=== PATIENT | female | born 1940 | race Caucasian/White ===

== ENCOUNTER 2016-12-14 13:23 | Inpatient (IN) | payer MEDICARE ==
[2016-12-14] MEDS ORDERED: traZODone TAB* 50 MG TAB PO PRN (15:27)
[2016-12-14] MEDS ORDERED: oxyCODONE TAB* 5 MG TAB PO PRN (15:28)
[2016-12-14] MEDS ORDERED: LORazepam TAB(*) 0.5 MG SL PRN (15:53)
[2016-12-14] MEDS ORDERED: LORazepam INJ* 2 MG/ML 1 ML VIAL IV PUSH PRN (15:53)
[2016-12-14] MEDS ORDERED: Dexamethasone IV* 4 MG/ML 1 ML (4 MG) ONE (16:52)
--- NOTE | 2016-12-14 17:00 | ED ---
Edel Arguello Auryana, scribed for Margarito Quigley MD on 12/14/16 at 1458 . Neurological HPI - HPI Summary HPI Summary: 76 year old female presents with LUE weakness/numbness starting this morning. Patient was unable to hold objects in her hands without dropping them. She also reports reports a slight FAGAN "like when you don't eat". She has been on chemotherapy and is scheduled to continue treatment for the next month. She has a PMHx of HLD, and ovarian, breast, and lung cancer. She was seen at [facility] today and referred to ED for further evaluation of MRI results - metastasized lesions to the brain. Dr. Lyon accepted this transfer [facility]. - History of Current Complaint Chief Complaint: EDNeurologicalDeficit Stated Complaint: ARM NUMBNESS Time Seen by Provider: 12/14/16 13:31 Last Known Well Date: 12/14/16 Hx Obtained From: Patient Hx Last Menstrual Period: N/A Onset/Duration: Sudden Onset - this morning, Still Present Onset Severity: Mild Current Severity: Mild Neurological Deficit Location: LUE Pain Intensity: 3 Pain Scale Used: 0-10 Numeric Character: Weak Associated Signs and Symptoms: Positive: Headache - reports "like when you dont eat", Weakness - LUE - Allergy/Home Medications Allergies/Adverse Reactions: Allergies Allergy/AdvReac Type Severity Reaction Status Date / Time seasonal allergies Allergy Nasal Uncoded 01/28/16 09:15 drip, cough Home Medications: Home Medications Aspirin TAB* [Aspirin 325 MG TAB*] 325 mg PO DAILY 12/14/16 [History Confirmed 12/14/16] Cholecalciferol TAB* [Vitamin D TAB*] 1,000 unit PO DAILY 12/14/16 [History Confirmed 12/14/16] Gemfibrozil TAB* [Lopid TAB*] 600 mg PO BID 12/14/16 [History Confirmed ] Lansoprazole SOLUTAB* [Prevacid SOLUTAB*] 15 mg PO EVERY OTHER DAY 12/14/16 [ History Confirmed 12/14/16] Multivitamins/Minerals TAB* [Theragran/minerals TAB*] 1 tab PO DAILY 12/14/16 [ History Confirmed 12/14/16] Olaparib 400 mg PO BID 12/14/16 [History Confirmed 12/14/16] Argyle-3 Fatty Acids (Nf) [Fish Oil (NF)] 1,000 mg PO DAILY 12/14/16 [History Confirmed 12/14/16] PMH/Surg Hx/FS Hx/Imm Hx Endocrine/Hematology History: Denies: Hx Diabetes, Hx Systemic Lupus Erythematosus Cardiovascular History: Denies: Hx Congestive Heart Failure, Hx Hypertension, Other Cardiovascular Problems/Disorders Respiratory History: Reports: Other Respiratory Problems/Disorders - LUNG CANCER Denies: Hx Asthma History: Denies: Hx Dialysis, Hx Renal Disease Musculoskeletal History: Denies: Hx Rheumatoid Arthritis Neurological History: Reports: Other Neuro Impairments/Disorders - numbness in feet and hands - Cancer History Cancer Type, Location and Year: breast 2006 and ovarian 2008 and lung cancer 2012 Hx Chemotherapy: Yes - Surgical History Surgery Procedure, Year, and Place: hysterectomy 2008; lumpectomy 2006; hernia 2009 Infectious Disease History: No Infectious Disease History: Denies: Traveled Outside the [place] in Last 30 Days - Social History Occupation: Retired Lives: Alone Alcohol Use: None Substance Use Type: Reports: None Hx Tobacco Use: No Smoking Status (MU): Never Smoked Tobacco Review of Systems Constitutional: Negative Eyes: Negative ENT: Negative Cardiovascular: Negative Respiratory: Negative Gastrointestinal: Negative Genitourinary: Negative Musculoskeletal: Negative Skin: Negative Positive: Headache - slight - see HPI, Weakness Psychological: Normal All Other Systems Reviewed And Are Negative: Yes Physical Exam - Summary Physical Exam Summary: VITAL SIGNS: Reviewed. GENERAL: Patient is a elderly fragile appearing female who is lying comfortable in the stretcher. Patient is not in any acute respiratory distress. HEAD AND FACE: No signs of trauma. No ecchymosis, hematomas or skull depressions. No sinus tenderness. EYES: PERRLA, EOMI x 2, No injected conjunctiva, no nystagmus. No photophobia. EARS: Hearing grossly intact. Ear canals and tympanic membranes are within normal limits. MOUTH: Oropharynx within normal limits. NECK: Supple, trachea is midline, no adenopathy, no JVD, no carotid bruit, no c- spine tenderness, neck with full ROM. No meningeal signs, no Kernig's or brudzinskis signs. CHEST: Symmetric, no tenderness at palpation LUNGS: Clear to auscultation bilaterally. No wheezing or crackles. CVS: Regular rate and rhythm, S1 and S2 present, no murmurs or gallops appreciated. ABDOMEN: Soft, non-tender. No signs of distention. No rebound no guarding, and no masses palpated. Bowel sounds are normal. EXTREMITIES: FROM in all major joints, no edema, no cyanosis or clubbing. NEURO: Alert and oriented x 3. SLIGHT weakness in the LUE. Speech is normal and follows commands. SKIN: Dry and warm Triage Information Reviewed: Yes Vital Signs On Initial Exam: Initial Vitals Temp Pulse Resp BP Pulse Ox 98.7 F 84 18 135/64 96 12/14/16 13:30 12/14/16 13:30 12/14/16 13:30 12/14/16 13:30 12/14/16 13:30 Vital Signs Reviewed: Yes Diagnostics - Vital Signs Vital Signs Temp Pulse Resp BP Pulse Ox 12/14/16 13:30 98.7 F 84 18 135/64 96 - Laboratory Lab Statement: Any lab studies that have been ordered have been reviewed, and results considered in the medical decision making process. Course/Dx - Course Assessment/Plan: 76 year old female presents with LUE weakness/numbness starting this morning. Patient was unable to hold objects in her hands without dropping them. She also reports reports a slight FAGAN "like when you don't eat". She has been on chemotherapy and is scheduled to continue treatment for the next month. She has a PMHx of HLD, and ovarian, breast, and lung cancer. She was seen at [facility] today and referred to ED for further evaluation of MRI results - metastasized lesions to the brain. Dr. Lyon accepted this transfer [facility]. At arrival the patient is hemodynamically stable she AOX3 and she has no other complaints. Annette HOCKEY SCOUT from Dr. Lyon came to the ED and assess patient. She discussed the case with Dr. Lyon and admitted the patient to their services. Did not require require a repeat blood work or any imaging. - Diagnoses Provider Diagnoses: Brain metastases - Physician Notifications Discussed Care of Patient With: DR. LYON - [facility] ACCEPTED PATIENT FOR ADMISSION Instructed by Provider To: Admit As Inpatient Discharge - Discharge Plan Condition: Stable Disposition: ADMITTED TO [facility] The documentation as recorded by the Edel quiroga Auryana accurately reflects the service I personally performed and the decisions made by , Margarito Quigley MD.
[2016-12-14] MEDS: Dexamethasone IV* 4 MG in NS 0.9% 50 ML* 50 ML IVPB SCH ×2 (17:14→21:56)
[2016-12-14] MEDS: levETIRAcetam TAB* 500 MG PO SCH (20:36)
[2016-12-14] MEDS: Gemfibrozil TAB* 600 MG PO SCH (20:36)
[2016-12-15] MEDS: Dexamethasone IV* 4 MG in NS 0.9% 50 ML* 50 ML IVPB SCH ×4 (04:01→22:44)
[2016-12-15 05:05] LABS: Hematocrit 34 % (35-47); Hemoglobin 11.7 g/dl (12.0-16.0); Mean Corpuscular HGB Conc 34 g/dl (31-36); Mean Corpuscular Hemoglobin 39 pg (27-31); Mean Corpuscular Volume 113 fL (80-97); Mean Platelet Volume 9 um3 (7.4-10.4); Red Blood Count 3.03 10^6/ul (4.0-5.4); Red Cell Distribution Width 18 % (10.5-15); White Blood Count 5.5 10^3/ul (3.5-10.8)
[2016-12-15 05:09] LABS: Albumin 3.6 g/dL (3.2-5.2); BUN/Creatinine Ratio 33.3 (8-20); Calcium 9.6 mg/dL (8.6-10.3); EGFR African American 125.7 (>60); EGFR Non-African American 97.7 (>60); Globulin 2.6 g/dL (2-4); Potassium 4.2 mmol/L (3.5-5.0); Total Bilirubin 0.5 mg/dL (0.2-1.0); Total Protein 6.2 g/dL (6.4-8.9)
[2016-12-15] MEDS: NS 0.9% 1000 ML* 1,000 ML IV SCH (06:38)
[2016-12-15] MEDS: Multivitamins/Minerals TAB PO SCH (08:56)
[2016-12-15] MEDS: levETIRAcetam TAB* 500 MG PO SCH ×2 (08:56→20:18)
[2016-12-15] MEDS: Cholecalciferol TAB* 1000 UNITS PO SCH (08:56)
[2016-12-15] MEDS: Gemfibrozil TAB* 600 MG PO SCH ×2 (08:57→20:18)
[2016-12-15] MEDS: LORazepam TAB(*) 0.5 MG SL PRN (10:20)
--- NOTE | 2016-12-15 12:28 | RAD ---
INDICATION: CT for radiation therapy mapping. Intracranial metastasis. COMPARISON: MRI brain December 14, 2016 TECHNIQUE: Noncontrast, nondiagnostic, axial source images of the head were acquired. FINDINGS: There are intracranial lesions with associated vasogenic edema better documented on recent MR imaging. There is no acute intracranial hemorrhage. There is left maxillary antral sinusitis with an air-fluid level. Please refer also to recent external examinations. IMPRESSION: A SIM study was performed for radiation planning purposes.
--- NOTE | 2016-12-15 17:05 | RADMED ---
RADIATION ONCOLOGY INPATIENT CONSULTATION NOTE: DATE OF SERVICE: 12/14/16 DIAGNOSES: Breast and ovarian cancer with newly discovered brain metastasis. HISTORY OF PRESENT ILLNESS: Kellie Chaparro is a 76-year-old woman with known BRCA mutation and history of breast cancer treated in 2006, as well as ovarian cancer, with recently discovered additional malignancy in the right breast and axilla. She had initiated Doxil chemotherapy, and presented with an episode of shaking of the left arm for evaluation with CT scan of the head showing intracranial lesions and MRI performed earlier today, 12/14/16, showing approximately 15 enhancing lesions consistent with brain metastases. She has received dexamethasone and Keppra with symptomatic improvement, and is referred for consideration of palliative whole brain radiation therapy. PAST MEDICAL HISTORY: Breast and ovarian cancer, as in history of present illness. MEDICATIONS: 1. Vitamin D. 2. Dexamethasone. 3. Gemfibrozil. 4. Lansoprazole. 5. Keppra. 6. Ativan. 7. Multivitamin. 8. Oxycodone. 9. Trazodone. ALLERGIES: No known drug allergies. FAMILY HISTORY: Significant for known BRCA mutation in the family. SOCIAL HISTORY: She is accompanied by several of her children and one of her grandchildren. REVIEW OF SYSTEMS: Complete review of systems is asked of the patient. Negative for additional significant findings. PHYSICAL EXAM: Vital Signs: Temperature 99, pulse rate 83, respiratory rate 16 , oxygen saturation 95% on room air, blood pressure 116/62. In general, she is awake, alert and oriented, in no acute distress. Normocephalic, atraumatic, sclerae anicteric. Neck is supple. Full range of motion. Midline trachea. No masses felt in the neck or thyroid. Lungs are clear to auscultation bilaterally. Cardiovascular: S1, S2. Regular. Abdomen: Soft, nontender. No masses, no organomegaly. Extremities: No cyanosis or edema. Neurologic: Cranial nerves II through XII are intact. Strength is symmetric in the proximal and distal muscle groups in the upper and lower extremities. There is pronator drift of the left arm, minimal dysmetria. DIAGNOSTIC STUDIES/LAB DATA: Pathology and Radiology: Reviewed as in the history of present illness. ASSESSMENT AND PLAN: Kellie Chaparro is a 76-year-old woman with breast and ovarian cancer both systemic disease and now newly discovered multiple brain metastases. I did review her history as well as pathologic and radiographic findings, and discussed at some length with the patient and her family, as they are already well informed and familiar. We reviewed the natural history of brain metastases, and considerations for management, with the majority of our discussion focused on her situation. I reviewed options including palliative care and hospice, focal radiation therapy, and primarily whole brain radiation therapy. I described the logistics and rationale for that treatment, risks, benefits, alternatives, as well as the acute and long-term frequent and uncommon toxicities. I did answer the patient and her family's questions to the best of my ability. She is interested to proceed with palliative whole brain radiation therapy as discussed and did sign informed consent. She will undergo CT simulation tomorrow to facilitate treatment planning. It is my intention to deliver 3000 cGy in 10 fractions, tentative first treatment plan tomorrow . The treatment can continue on an inpatient or outpatient basis as her medical situation permits. Thank you for giving me the opportunity to participate in the care of this very pleasant patient. CC: Dr. Lyon* [id number]/[facility] #: [id number] FRANK
[2016-12-16] MEDS: Dexamethasone IV* 4 MG in NS 0.9% 50 ML* 50 ML IVPB SCH ×4 (04:03→22:11)
[2016-12-16 04:31] LABS: Albumin 3.5 g/dL (3.2-5.2); BUN/Creatinine Ratio 41.9 (8-20); Calcium 9.4 mg/dL (8.6-10.3); EGFR Non-African American 94.1 (>60); Globulin 2.6 g/dL (2-4); Potassium 4.2 mmol/L (3.5-5.0); Total Bilirubin 0.4 mg/dL (0.2-1.0); Total Protein 6.1 g/dL (6.4-8.9)
[2016-12-16] MEDS ORDERED: Lansoprazole susp Kit 3 MG/ML (15 MG = 5 ML) PO SCH (09:00)
[2016-12-16] MEDS: Cholecalciferol TAB* 1000 UNITS PO SCH (10:13)
[2016-12-16] MEDS: levETIRAcetam TAB* 500 MG PO SCH ×2 (10:13→21:12)
[2016-12-16] MEDS: Gemfibrozil TAB* 600 MG PO SCH ×2 (10:13→21:12)
[2016-12-16] MEDS: Multivitamins/Minerals TAB PO SCH (10:13)
[2016-12-16] MEDS: LORazepam TAB(*) 0.5 MG SL PRN (10:14)
[2016-12-16] MEDS: NS 0.9% 1000 ML* 1,000 ML IV SCH ×2 (10:16)
[2016-12-16] MEDS ORDERED: Calcium Carbonate CHEW TAB* 500 MG (TUMS) PO PRN (10:43)
[2016-12-16] MEDS: Ondansetron TAB* 4 MG PO PRN (12:10)
[2016-12-17] MEDS: NS 0.9% 1000 ML* 1,000 ML IV SCH (01:16)
[2016-12-17] MEDS: Dexamethasone IV* 4 MG in NS 0.9% 50 ML* 50 ML IVPB SCH ×2 (04:24→10:02)
[2016-12-17 07:47] VITALS: BP 121/57
[2016-12-17] MEDS: Cholecalciferol TAB* 1000 UNITS PO SCH (08:33)
[2016-12-17] MEDS: Gemfibrozil TAB* 600 MG PO SCH ×2 (08:33→09:14)
[2016-12-17] MEDS: Ondansetron TAB* 4 MG PO PRN (08:33)
[2016-12-17] MEDS: Multivitamins/Minerals TAB PO SCH (08:33)
[2016-12-17] MEDS: levETIRAcetam TAB* 500 MG PO SCH (08:33)
--- NOTE | 2016-12-17 23:32 | DS ---
DISCHARGE SUMMARY: DATE OF ADMISSION: 12/14/16 DATE OF DISCHARGE: 12/17/16 PRINCIPAL DIAGNOSES: 1. Newly diagnosed brain metastases. 2. Previous history of progression of her breast cancer disease, recently received first cycle of Doxil chemotherapy. 3. Ovarian cancer. 4. Hyperlipidemia. DISCHARGE MEDICATIONS: Include: 1. Calcium, Tums tabs every 4 hours as needed. 2. Vitamin D3 1000 units daily. 3. Dexamethasone 4 mg p.o. t.i.d. 4. She is to hold her gemfibrozil right now. 5. Lansoprazole or her home PPI daily. 6. One multivitamin p.o. daily. 7. Ondansetron 4 mg every 8 hours as needed for nausea. 8. Keppra 500 mg p.o. b.i.d. 9. Trazodone 50 mg at bedtime if needed. DIET: She will follow a no concentrated sweet diet. ACTIVITY LEVEL: As needed with wheeled walker for safety. FOLLOWUP: She is to follow up with Dr. Lyon as previously scheduled in the third week in December and continue and complete her radiation therapy x7 additional treatments with Dr. Oscar Monroe. HOSPITAL COURSE: Briefly, the patient was admitted to the hospital with new symptoms including left arm pain and left eye abnormalities. She was seen in the emergency room at [facility] in [place] and requested transfer to the emergency room at [facility] in [place]. As a result of her symptoms, she did get a CT scan of the brain and MRI of the brain and immediately started on Keppra and Decadron at [facility] and found to have 14 plus lesions newly diagnosed in the brain. A surgical consultation was initiated with Dr. Thomas in [place] who felt that she was not a surgical candidate secondary to the numerous lesions and was sent here for radiation therapy under the guidance of Dr. Oscar Monroe. The family agreed to have the radiation therapy complete and then when she returns for followup, the family and patient will discuss with Dr. Lyon as to whether active chemotherapy will be continued or not, based her on performance status and symptoms. Her glucoses remained stable during her hospital stay and physical therapy did evaluate her for no specific fall precaution. Her vital signs were stable and afebrile on the day of her discharge. ALEJANDRA Chaney [id number]/[facility] #: [id number] FRANK
== END 2016-12-17 12:15 | disposition home or self-care (01) | DRG 54 ==
LOC: ED 13:23 → MED 13:30
PROVIDERS: ADMIT Internal Medicine Hematology & Oncology; ATTEND Internal Medicine Hematology & Oncology
PROC: D0001ZZ Beam Radiation of Brain using Photons 1 - 10 MeV (ICD-10-PCS; principal; 2016-12-17)
DX: C79.31 Secondary malignant neoplasm of brain (principal); G93.6 Cerebral edema; C56.9 Malignant neoplasm of unspecified ovary; C50.911 Malignant neoplasm of unspecified site of right female breast; E78.5 Hyperlipidemia, unspecified; Z85.3 Personal history of malignant neoplasm of breast; Z85.43 Personal history of malignant neoplasm of ovary; Z85.118 Personal history of other malignant neoplasm of bronchus and lung; Z80.3 Family history of malignant neoplasm of breast; Z79.52 Long term (current) use of systemic steroids
CPT/HCPCS: 36415; 77014; 80053; 85025; 99232; 99238; A9270-GY; J1100; J1642